=== PATIENT | male | born 1980 | race American Indian/Alaskan Native ===

== ENCOUNTER 2018-06-05 11:45 | Emergency (ER) | payer SELFPAY ==
[2018-06-05 11:51] VITALS: BP 158/92
[2018-06-05] MEDS ORDERED: TORADOL IM ONE (12:37)
--- NOTE | 2018-06-05 12:42 | Emergency Department Report ---
ED Headache HPI - General Chief Complaint: Headache Stated Complaint: SEVERE HEADACHE Source: patient Exam Limitations: no limitations - History of Present Illness Initial Comments: This is a 37 year-old male that presents with left sided headache for 2 weeks. Past medical history of anxiety, HTN, and prediabetes. He was sent to the emergency room from primary care provider at [facility]. He was referred to [facility] emergency room the patient states he was prefer to follow-up in the emergency room air his home. Patient reports symptoms increased over the past 4 days and is waking him out of sleep. Headaches are sharp and last for 1-5 seconds. They are frequent, every 5-30 minutes and get worse at night. He reports throbbing pressure behind left eye and on the left side. He reports waking out of sleep every hour in tears. He took 2 ibuprofen 600 mg pills yesterday which relieved symptoms for a few hours. He denies light sensitivity, blurry vision, nausea or vomiting, chest pain, and dizziness. Timing/Duration: 1 week (2 weeks), increasing, waxing and waning Quality: severe, sharp, throbbing Head Injury Location: other (left-sided) Recent Head Trauma: no recent headache/trauma Modifying Factors: improves with: exposure to light, medication Associated Symptoms: denies symptoms Allergies/Adverse Reactions: Allergies No Known Allergies Allergy (Verified 06/05/18 11:46) Home Medications: Ambulatory Orders Amoxicillin/Potassium Clav [Augmentin 875-125 Tablet] 1 each PO BID #10 tablet 06/05/18 Fluticasone [Flonase] 1 spray NS QDAY #1 bottle 06/05/18 ED Review of Systems ROS: Stated complaint: SEVERE HEADACHE Other details as noted in HPI Constitutional: denies: chills, fever Respiratory: denies: cough, shortness of breath, wheezing Cardiovascular: denies: chest pain, palpitations Gastrointestinal: denies: abdominal pain, nausea, diarrhea Neurological: headache (left-sided). denies: weakness, paresthesias Psychiatric: denies: anxiety, depression ED Past Medical Hx - Past Medical History Previous Medical History?: Yes Hx Hypertension: Yes Hx Diabetes: Yes ("pre") - Surgical History Past Surgical History?: No - Social History Smoking Status: Never Smoker Substance Use Type: Alcohol - Medications Home Medications: Home Medications Medication Instructions Recorded Confirmed Last Taken Type Amoxicillin/Potassium Clav 1 each PO BID #10 tablet 06/05/18 Unknown Rx [Augmentin 875-125 Tablet] Fluticasone [Flonase] 1 spray NS QDAY #1 bottle 06/05/18 Unknown Rx ED Physical Exam - General Limitations: No Limitations General appearance: alert, in no apparent distress - ENT ENT exam: Present: normal orophraynx, mucous membranes moist (turbinates mildly congested with clear discharge), TM's normal bilaterally, other (frontal and maxillary tenderness) - Neck Neck exam: Present: normal inspection - Respiratory Respiratory exam: Present: normal lung sounds bilaterally. Absent: respiratory distress - Cardiovascular Cardiovascular Exam: Present: regular rate, normal rhythm. Absent: systolic murmur, diastolic murmur, rubs, gallop - GI/Abdominal GI/Abdominal exam: Present: soft, normal bowel sounds - Neurological Exam Neurological exam: Present: alert, oriented X3, normal gait - Psychiatric Psychiatric exam: Present: normal affect, normal mood - Skin Skin exam: Present: warm, dry, intact, normal color. Absent: rash ED Course Vital Signs 06/05/18 06/05/18 11:46 12:46 Temperature 98.6 F Pulse Rate 82 Respiratory 18 18 Rate Blood Pressure 158/92 O2 Sat by Pulse 99 Oximetry ED Medical Decision Making - Radiology Data Radiology results: report reviewed, image reviewed EXAM: CT HEAD/BRAIN WO CON HISTORY: headache TECHNIQUE: CT of the head was performed without intravenous contrast. PRIORS: None. FINDINGS: The ventricles are normal in shape and position. The ventricles are nondilated. No intracranial hemorrhage, mass, mass effect, midline shift or evidence of acute ischemic infarct. The basilar cisterns are patent. There is mucosal thickening of the right maxillary sinus which is likely congestive or inflammatory. The extracranial soft tissues demonstrate no abnormality. The calvarium is intact. The orbits are intact. The mastoid air cells are clear. IMPRESSION: 1. No acute intracranial abnormality. 2. Mucosal thickening of the right maxillary sinus is likely congestive or inflammatory. - Medical Decision Making 37 y.o. male that presents with left-sided headache. Patient examined by me and stable. No distress noted. Vitals normal. Given toradol 30 mg IM once while in ER. CT of head obtained and dictated by radiologist. 1. No acute intracranial abnormality. 2. Mucosal thickening of the right maxillary sinus is likely congestive or inflammatory. Reevaluation patient reports feeling better. Reviewed results with patient. Start Augmentin and Flonase for acute sinusitis. Discharged home stable. Follow up with Primary Care Provider in 2- 3 days. Critical care attestation.: If time is entered above; I have spent that time in minutes in the direct care of this critically ill patient, excluding procedure time. ED Disposition Clinical Impression: Tension type headache Qualifiers: Headache chronicity pattern: acute headache Intractability: not intractable Qualified Code(s): G44.209 - Tension-type headache, unspecified, not intractable Acute sinusitis Qualifiers: Sinusitis location: maxillary Recurrence: non-recurrent Qualified Code(s): J01.00 - Acute maxillary sinusitis, unspecified Disposition: TO HOME OR SELFCARE Is pt being admited?: No Does the pt Need Aspirin: No Condition: Stable Instructions: Sinusitis (ED), Tension Headache (ED) Additional Instructions: Increase fluid intake and rest. Wash hands frequently. Continue taking Tylenol or ibuprofen to control fever. F/U with Primary Care Provider. Return to ER if fever, SOB, or difficulty breathing after 48 hours of supportive care. Prescriptions: Amoxicillin/Potassium Clav [Augmentin 875-125 Tablet] 1 each PO BID #10 tablet Fluticasone [Flonase] 1 spray NS QDAY #1 bottle Referrals: [facility] [Outside] - 3-5 Days [facility] [Outside] - 3-5 Days Forms: Work/School Release Form(ED) Time of Disposition: 15:32 Print Language: VIETNAMESE
--- NOTE | 2018-06-05 14:48 | Cat Scan Report ---
FINAL REPORT EXAM: CT HEAD/BRAIN WO CON HISTORY: headache TECHNIQUE: CT of the head was performed without intravenous contrast. PRIORS: None. FINDINGS: The ventricles are normal in shape and position. The ventricles are nondilated. No intracranial hemorrhage, mass, mass effect, midline shift or evidence of acute ischemic infarct. The basilar cisterns are patent. There is mucosal thickening of the right maxillary sinus which is likely congestive or inflammatory. The extracranial soft tissues demonstrate no abnormality. The calvarium is intact. The orbits are intact. The mastoid air cells are clear. IMPRESSION: 1. No acute intracranial abnormality. 2. Mucosal thickening of the right maxillary sinus is likely congestive or inflammatory.
== END 2018-06-05 15:55 | disposition home or self-care (01) ==
LOC: ED 11:45
DX: G44.209 Tension-type headache, unspecified, not intractable (principal); J01.00 Acute maxillary sinusitis, unspecified; I10 Essential (primary) hypertension; E11.9 Type 2 diabetes mellitus without complications; F41.9 Anxiety disorder, unspecified
CPT/HCPCS: 70450; 96372; 99283; J1885